=== PATIENT | female | born 2000 | race Two or more races ===

== ENCOUNTER 2021-03-14 20:15 | Inpatient (IN) | payer OTHER ==
[~2021-03-14] VITALS: Ht 144.8 cm; Wt 40.4 kg
--- NOTE | 2021-03-14 20:25 | NUR ---
PATIENT WAS BIB [facility] FROM HOME WITH C/O MIDSTERNAL CHEST PAIN X1 DAY. PT IS AAO X 4, BREATHING EVEN AND UNLABORED, SATURATION >95 ON ROOM AIR. ON ASSESSMENT, PT STATES THE PAIN IS NON RADIATING. PT ATTACHED TO MONITOR AND PULSE OX. WILL CONT TO MONITOR PT.
--- NOTE | 2021-03-14 20:40 | NUR ---
EKG DONE AT BEDSIDE
--- NOTE | 2021-03-14 20:45 | NUR ---
IV LINE ESTABLISHED AT RAC 20G, BLOOD DRAWN, MRSA SWAB COLLECTED AND SENT TO LAB
[2021-03-14 20:49] LABS: BASOPHILS % (AUTO) 0.6 % (0.0-2.0); EOSINOPHILS % (AUTO) 2.1 % (0.0-6.0); HEMATOCRIT 57 % (33-45); HEMOGLOBIN 18.7 g/dL (11.5-14.8); LYMPHOCYTES # (AUTO) 2.3 K/uL (0.8-4.8); LYMPHOCYTES % (AUTO) 28.4 % (20.0-44.0); MEAN CORPUSCULAR HGB CONC 33 g/dl (31.0-36.0); MEAN CORPUSCULAR VOLUME 91 fL (82-100); MONOCYTES # (AUTO) 0.8 K/uL (0.1-1.30); MONOCYTES % (AUTO) 9.4 % (2.0-12.0); NEUTROPHILS # (AUTO) 4.8 K/uL (1.8-8.9); NEUTROPHILS % (AUTO) 59.5 % (43.0-81.0); PLATELET COUNT (AUTO) 192 K/uL (150-450); RED BLOOD CELL COUNT(AUTO) 6.19 MIL/uL (4.0-5.2); WHITE BLOOD COUNT (AUTO) 8.1 K/uL (4.3-11.0)
--- NOTE | 2021-03-14 20:50 | NUR ---
COVID ANTIGEN SWAB COLLECTED AND SENT TO LAB
[2021-03-14 21:07] LABS: CALCIUM, SERUM 8.2 mg/dL (8.5-10.1); CARBON DIOXIDE 23 mmol/L (21-32); CHLORIDE 106 mmol/L (98-107); CREATININE 0.8 mg/dL (0.6-1.3); GLUCOSE 80 mg/dL (74-106); SODIUM SERUM 137 mmol/L (136-145); UREA NITROGEN, BLOOD 23 mg/dL (7-18)
--- NOTE | 2021-03-14 21:10 | NUR ---
DR ARREOLA AT BEDSIDE
[2021-03-14] MEDS ORDERED: ASPIRIN 81 MG TAB.CHEW PO ONE (22:00)
[2021-03-14] MEDS ORDERED: ENOXAPARIN SODIUM 30 MG/0.3 ML DISP.SYRIN SQ SCH (22:30)
[2021-03-14] MEDS ORDERED: MAGNESIUM HYDROXIDE 30 ML UDC PO PRN (22:30)
[2021-03-14] MEDS ORDERED: MAG HYDROX/AL HYDROX/SIMETH 30 ML UDC PO PRN (22:30)
[2021-03-14] MEDS ORDERED: HYDROCODONE/APAP 5/325MG TABLET PO PRN (22:30)
[2021-03-14] MEDS ORDERED: ONDANSETRON HCL/PF 4 MG/2 ML VIAL IVP PRN (22:30)
[2021-03-14] MEDS ORDERED: MORPHINE SULFATE INJ 2 MG/ML DISP.SYRIN IV PRN (22:30)
[2021-03-14] MEDS ORDERED: NITROGLYCERIN 0.4 MG/TAB BOTTLE SL ONE (22:30)
[2021-03-14] MEDS ORDERED: ACETAMINOPHEN 325 MG TABLET PO PRN (22:30)
[2021-03-14 22:59] LABS: EOSINOPHILS % (MANUAL) 3 % (0-4); LYMPHOCYTES % (MANUAL) 22 % (16-48); MONOCYTES % (MANUAL) 11 % (0-11.0); NEUTROPHILS % (MANUAL) 60 (42-76); REACTIVE LYMPHOCYTES 4 % (0-0)
--- NOTE | 2021-03-14 23:14 | NUR ---
TELE 320-2
--- NOTE | 2021-03-14 23:30 | NUR ---
REPORT GIVEN TO TOÑO PEREZ FOR JOVANNI
--- NOTE | 2021-03-14 23:40 | NUR ---
PT TRANSFERRED TO TELE 3RD FLOOR RM 320-2 VIA ACLS PROTOCOL
[2021-03-14 23:45] VITALS: BP 102/53
[2021-03-15] VITALS: BP 121/72
--- NOTE | 2021-03-15 00:44 | NUR ---
ADMISSION NOTES RECEIVED PT VIA MITZY @8019. PT IS AOx4. ABLE TO MAKE NEEDS KNOWN. ON OXYGEN VIA NASAL CANNULA AT 5L/MIN AND TOLERATING WELL. NO SOB NOTED. NO S/SX OF RESPIRATORY DISTRESS NOTED. IV ACCESS IN R AC #20G. IV IS INTACT, PATENT, AND FLUSHING WELL. TELE MONITOR DETECTS SINUS BRADYCARDIA WITH RATE OF 58. SAFETY PRECAUTIONS IN PLACE: BED IN LOWEST, LOCKED POSITION, BRAKES ON, SIDERAILS UPx2. TABLE AND CALL LIGHT WITHIN REACH. WILL CONTINUE TO MONITOR.
[2021-03-15 04:00] VITALS: BP 109/49
[2021-03-15 06:17] LABS: BASOPHILS % (AUTO) 0.4 % (0.0-2.0); EOSINOPHILS % (AUTO) 1.4 % (0.0-6.0); HEMATOCRIT 52 % (33-45); HEMOGLOBIN 17.3 g/dL (11.5-14.8); LYMPHOCYTES # (AUTO) 1.9 K/uL (0.8-4.8); LYMPHOCYTES % (AUTO) 21.8 % (20.0-44.0); MEAN CORPUSCULAR HGB CONC 33 g/dl (31.0-36.0); MEAN CORPUSCULAR VOLUME 92 fL (82-100); MONOCYTES # (AUTO) 0.8 K/uL (0.1-1.30); MONOCYTES % (AUTO) 9.5 % (2.0-12.0); NEUTROPHILS # (AUTO) 5.8 K/uL (1.8-8.9); NEUTROPHILS % (AUTO) 66.9 % (43.0-81.0); PLATELET COUNT (AUTO) 197 K/uL (150-450); RED BLOOD CELL COUNT(AUTO) 5.71 MIL/uL (4.0-5.2); WHITE BLOOD COUNT (AUTO) 8.7 K/uL (4.3-11.0)
--- NOTE | 2021-03-15 06:25 | NUR ---
WEATHERIZATION FIELD TECHNICIAN CLOSING NOTES PT IN BED, SLEEPING, AWAKENS TO VERBAL STIMULI. PT IS AOx4. ABLE TO MAKE NEEDS KNOWN. ON OXYGEN VIA NASAL CANNULA AT 5L/MIN AND TOLERATING WELL. NO SOB NOTED. NO S/SX OF RESPIRATORY DISTRESS NOTED. IV ACCESS IN R AC #20G. IV IS INTACT, PATENT, AND FLUSHING WELL. TELE MONITOR DETECTS SINUS BRADYCARDIA WITH RATE OF 58. ALL NEEDS MET. PT KEPT CLEAN AND DRY. SAFETY PRECAUTIONS IN PLACE: BED IN LOWEST, LOCKED POSITION, BRAKES ON, SIDERAILS UPx2. TABLE AND CALL LIGHT WITHIN REACH. WILL ENDORSE TO ONCOMING SHIFT.
[2021-03-15 07:26] LABS: CHOLESTEROL 157 mg/dL (<200); HDL CHOLESTEROL 55 mg/dL (40-60); LDL 93 mg/dL (0-99); THYROID STIMULATING HORMONE 2.408 uIU/mL (0.358-3.74); TRIGLYCERIDES 72 mg/dL (30-150)
[2021-03-15 07:27] LABS: CALCIUM, SERUM 8.5 mg/dL (8.5-10.1); CARBON DIOXIDE 19 mmol/L (21-32); CHLORIDE 107 mmol/L (98-107); CREATININE 0.5 mg/dL (0.6-1.3); GLUCOSE 62 mg/dL (74-106); MAGNESIUM 2.2 mg/dL (1.8-2.4); PHOSPHORUS 5.1 mg/dL (2.5-4.9); POTASSIUM 3.6 mmol/L (3.5-5.1); SODIUM SERUM 137 mmol/L (136-145); UREA NITROGEN, BLOOD 17 mg/dL (7-18)
[2021-03-15] MEDS: PANTOPRAZOLE 40 MG TABLET.DR PO SCH (07:42)
--- NOTE | 2021-03-15 07:45 | NUR ---
MS/RN OPENING NOTES RECEIVED PATIENT ON BED AWAKE ALERT AND ORIENTED X4. PATIENT IS ON 5L OXYGEN VIA NASAL CANNULA SATURATION 87%. PATIENT IN NO APPARENT RESPIRATORY DISTRESS NOTED. NO COMPLAINED OF PAIN NOTED. WILL CONTINUE TO MONITOR.
[2021-03-15 08:00] VITALS: BP 104/41
[2021-03-15] MEDS: ASPIRIN 81 MG TAB.CHEW PO SCH (08:32)
[2021-03-15] MEDS: ENOXAPARIN SODIUM 30 MG/0.3 ML DISP.SYRIN SQ SCH (08:40)
[2021-03-15] MEDS ORDERED: FERR325T24 PO (09:05)
[2021-03-15] MEDS ORDERED: ASPI-1169 PO (09:05)
[2021-03-15 12:00] VITALS: BP 103/50
[2021-03-15] MEDS: ENSURE ENLIVE 237 ML LIQUID (VANILLA) PO SCH (14:00)
[2021-03-15 16:00] VITALS: BP 108/54
--- NOTE | 2021-03-15 19:00 | NUR ---
TELEPHONE SWITCHBOARD OPERATOR OPENING NOTE RECEIVED PT IN BED, RESTING A/O X4, PT STABLE ON 5L OXYGEN VIA NC. NO S/S OF RESPIRATORY DISTRESS. PT IS ON EXTERNAL DAIRY POWDER MIXER OPERATOR READING SR @ 70 WITH BBB. NO C/O PAIN AT THIS TIME. IV ACCESS IN RIGHT AC # 20. IV IS INTACT, PATENT, AND FLUSHING WELL. FAMILY AT BEDSIDE. SAFETY MEASURES MAINTAINED AT ALL TIMES. BED IN LOWEST LOCKED POSITION, HOB ELEVATED, SIDE RAILS UP X2. CALL LIGHT AND TABLE WITHIN REACH. WILL CONTINUE WITH PLAN OF CARE.
--- NOTE | 2021-03-15 19:24 | NUR ---
TELE/RN CLOSING NOTES PATIENT IS ON BED ALERT AND ORIENTED X4. PATIENT IS ON 5L OXYGEN VIA NASAL CANNULA SATURATION 88%. PATIENT IN NO APPARENT RESPIRATORY DISTRESS NOTED. NO COMPLAINED OF PAIN NOTED AT THIS TIME. TELE MONITOR READING SINUS RHYTHM 76 BPM. IV ACCESS AT RIGHT AC # 20G PATENT AND INTACT. SEEN AND EXAMINED BY MD WITH ORDERS MADE AND CARRIED OUT. ALL DUE MEDICATIONS WAS GIVEN. SAFETY PRECAUTIONS WAS IN PLACED. BED IN LOWEST POSITION AND LOCKED. SIDE RAILS UP X2. CALL LIGHT WITHIN REACH. WILL ENDORSE TO FRONT OFFICE AGENT RN FOR CONTINUITY OF CARE.
[2021-03-15 20:00] VITALS: BP 100/59
[2021-03-16] VITALS: BP_SYST 103; BP_SYST 99; BP_DIAS 45; BP_DIAS 55
[2021-03-16 04:00] VITALS: BP 98/55
--- NOTE | 2021-03-16 06:29 | NUR ---
TECHNICAL PROGRAMS MANAGER CLOSING NOTE PT RESTING IN BED COMFORTABLY AT THIS TIME, EASY TO AROUSE, STABLE ON 5L OXYGEN VIA NC, SR @ 47 WITH BBB. PT REMAINED STABLE THROUGHOUT SHIFT. ALL NEEDS, MEDICATIONS, AND CARE ADMINISTERED ANTICIPATED PER ORDER; SAFETY PRECAUTIONS IN PLACE AND MAINTAINED AT ALL TIMES. BED IN LOWEST, LOCKED POSITION, HOB ELEVATED, SIDE RAILS UP X2. CALL LIGHT AN DTABLE WITHIN REACH. WILL ENDORSE TO AM SHIFT NURSE FOR JOVANNI.
[2021-03-16 08:16] VITALS: BP 104/42
[2021-03-16] MEDS: PANTOPRAZOLE 40 MG TABLET.DR PO SCH (08:16)
[2021-03-16] MEDS: ASPIRIN 81 MG TAB.CHEW PO SCH (08:16)
[2021-03-16] MEDS: ENOXAPARIN SODIUM 30 MG/0.3 ML DISP.SYRIN SQ SCH (08:16)
[2021-03-16] MEDS: ENSURE ENLIVE 237 ML LIQUID (VANILLA) PO SCH (08:17)
--- NOTE | 2021-03-16 08:38 | NUR ---
GUNNER MATE OPENING NOTES RECEIVED PATIENT IN BED, AWAKE, A/OX4. PATIENT ON ROOM AIR; BREATHING EVEN AND UNLABORED AT THIS TIME; NO SOB NOTED. NO COMPLAINS OF PAIN. TELE MONITOR WITH A CURRENT READING OF SR 61. NO IV LINE, PER MD OK NOT TO HAVE ONE. SAFETY PRECAUTIONS IN PLACE; BED IN LOW POSITION AND LOCKED, RAILS UP X2, CALL LIGHT WITHIN REACH. WILL CONTINUE TO MONITOR PATIENT.
--- NOTE | 2021-03-16 13:40 | NUR ---
EXTRACTION SUPERVISOR NOTES PATIENT SATURATING 81% ON ROOM AIR W/O O2 ON PATIENT IS COMFORTABLE ON 5 LPM SATURATING 96-97%
[2021-03-16 16:28] VITALS: BP 97/47
--- NOTE | 2021-03-16 18:31 | NUR ---
MEDIA DIRECTOR CLOSING NOTES PATIENT REMAINS IN BED, AWAKE, A/OX4. PATIENT ON ROOM AIR; BREATHING EVEN AND UNLABORED AT THIS TIME; NO SOB NOTED. NO COMPLAINS OF PAIN DURING THE SHIFT. NO IV LINE, PER MD OK NOT TO HAVE ONE. ALL NEEDS ATTENDED DURING THE DAY. PATIENT AWAITING DELIVERY OF O2 AND ABOUT TO GO HOME WITH FAMILY. ALL DISCHARGE PAPERWORK READY AND SIGNED BY PATIENT. SAFETY PRECAUTIONS IN PLACE; BED IN LOW POSITION AND LOCKED, RAILS UP X2, CALL LIGHT WITHIN REACH. WILL ENDORSE TO BRAND AMBASSADOR PROMOTIONAL MODEL NURSE.
--- NOTE | 2021-03-16 19:47 | NUR ---
OXYGEN TANK AND THE REGULATOR MACHINE ALREADY DELIVERED, PATIENT IS AWARE. IV ALREADY REMOVED BY CHRIS ROBERT. D/C INSTRUCTIONS GIVEN BY CHRIS ROBERT, PACKET GIVEN TO THE PATIENT.
--- NOTE | 2021-03-16 20:41 | NUR ---
PATIENT BEING PICKED UP BY RELATIVES WITH O2 AT 5L/MIN NASAL CANNULA, ON O2 TANK. PATIENT IS CALM. NO S/S OF DISTRESS NOTED.
== END 2021-03-16 20:30 | disposition home or self-care (01) | DRG 144 ==
LOC: ER 20:18 → TELE 23:18 → MED 03-16 09:27
PROVIDERS: ADMIT Nurse Practitioner Acute Care; ATTEND Nurse Practitioner Acute Care
DX: R09.02 Hypoxemia (principal); R64 Cachexia; E44.0 Moderate protein-calorie malnutrition; I42.9 Cardiomyopathy, unspecified; Z68.1 Body mass index [BMI] 19.9 or less, adult; R79.89 Other specified abnormal findings of blood chemistry; Q21.0 Ventricular septal defect; Z98.61 Coronary angioplasty status; Z98.890 Other specified postprocedural states; Z20.822 Contact with and (suspected) exposure to COVID-19
CPT/HCPCS: 36415; 71045-TC; 80048-TC; 80061-TC; 83735-TC; 83880; 84100-TC; 84443-TC; 84484-TC; 84703-TC; 85025-TC; 85378-TC; 87081-TC; 93307-TC; C9803; G0378; J1650

== ENCOUNTER 2023-10-22 14:34 | Emergency (ER) | payer OTHER ==
[~2023-10-22] VITALS: Ht 149.9 cm; Wt 38.6 kg
[~2023-10-22 14:34] MED LIST: ASPI-1169 PO; FERR325T24 PO
[2023-10-22 15:11] VITALS: BP 125/68; TEMP 98.1
[2023-10-22 15:24] VITALS: O2SAT 95
== END 2023-10-22 15:25 | disposition home or self-care (01) ==
LOC: ER 14:46
DX: H11.32 Conjunctival hemorrhage, left eye (principal); Z86.79 Personal history of other diseases of the circulatory system; Z87.09 Personal history of other diseases of the respiratory system

== ENCOUNTER 2024-02-05 01:21 | Inpatient (IN) | payer OTHER ==
[~2024-02-05] VITALS: Ht 149.9 cm; Wt 38.6 kg
--- NOTE | 2024-02-05 01:35 | NUR ---
[id number] from home for CP after getting in argument. noted with low O2 pt states is at "baseline" PATIENT CONNECTED TO MONITOR AND POX
[2024-02-05 01:50] LABS: BASOPHILS # (AUTO) 0.1 K/uL (0.0-0.2); BASOPHILS % (AUTO) 0.6 % (0.0-2.0); EOSINOPHILS # (AUTO) 0.1 K/uL (0.0-0.7); EOSINOPHILS % (AUTO) 0.7 % (0.0-6.0); HEMATOCRIT 55 % (33-45); HEMOGLOBIN 18.4 g/dL (11.5-14.8); LYMPHOCYTES # (AUTO) 1.9 K/uL (0.8-4.8); LYMPHOCYTES % (AUTO) 17.7 % (20.0-44.0); MEAN CORPUSCULAR HEMOGLOBIN 29 PG (26.0-33.0); MEAN CORPUSCULAR HGB CONC 34 g/dl (31.0-36.0); MEAN CORPUSCULAR VOLUME 86 fL (82-100); MONOCYTES # (AUTO) 0.9 K/uL (0.1-1.30); MONOCYTES % (AUTO) 8.5 % (2.0-12.0); NEUTROPHILS # (AUTO) 7.7 K/uL (1.8-8.9); NEUTROPHILS % (AUTO) 72.5 % (43.0-81.0); PLATELET COUNT (AUTO) 204 K/uL (150-450); RED BLOOD CELL COUNT(AUTO) 6.41 MIL/uL (4.0-5.2); RED CELL DISTRIBUTION WIDTH 15.3 % (11.5-15.0); WHITE BLOOD COUNT (AUTO) 10.7 K/uL (4.3-11.0)
[2024-02-05 02:20] LABS: ALANINE AMINOTRANSFERASE 18 U/L (12-78); ALKALINE PHOSPHATASE 97 U/L (46-116); ASPARTATE AMINOTRANSFERASE 21 U/L (15-37); BILIRUBIN,DIRECT 0.3 mg/dL (0.0-0.2); BILIRUBIN,TOTAL 1.5 mg/dL (0.2-1.0); CALCIUM, SERUM 9.4 mg/dL (8.5-10.1); CARBON DIOXIDE 21 mmol/L (21-32); CHLORIDE 104 mmol/L (98-107); CREATININE 0.5 mg/dL (0.6-1.3); GLUCOSE 91 mg/dL (74-106); NT-PRO BNP 105 pg/mL (0-125); POTASSIUM 4.2 mmol/L (3.5-5.1); SODIUM SERUM 138 mmol/L (136-145); TOTAL PROTEIN, SERUM 7.8 g/dL (6.4-8.2); UREA NITROGEN, BLOOD 17 mg/dL (7-18)
[2024-02-05 02:44] VITALS: BP 121/69; TEMP 98.6; O2SAT 85
--- NOTE | 2024-02-05 02:44 | NUR ---
spoke to Prakash the complex case manager and got auth to keep the patient. Auth# [id number] called house sup for tele bed
[2024-02-05] MEDS ORDERED: ONDANSETRON HCL/PF 4 MG/2 ML VIAL IVP PRN (03:30)
[2024-02-05] MEDS ORDERED: ZOLPIDEM TARTRATE 5 MG TABLET PO PRN (03:30)
[2024-02-05] MEDS ORDERED: NITROGLYCERIN 0.4 MG/TAB BOTTLE SL PRN (03:30)
[2024-02-05] MEDS ORDERED: MAGNESIUM HYDROXIDE 30 ML UDC PO PRN (03:30)
[2024-02-05] MEDS ORDERED: ACETAMINOPHEN 325 MG TABLET PO PRN (03:30)
[2024-02-05] MEDS ORDERED: Z GUARD REMEDY 4 OZ OINT TP PRN (03:30)
[2024-02-05] MEDS ORDERED: MAG HYDROX/AL HYDROX/SIMETH 30 ML UDC PO PRN (03:30)
--- NOTE | 2024-02-05 04:02 | NUR ---
Patient does not wish to proceed with medical care recommended by Dr. Billingsley. Patient given information related to possible complications, up to and including , which could occur as a result of leaving the hospital at this time. Patient verbalizes understanding of risks involved due to leaving against medical advice. Patient has signed AMA form.
[2024-02-05] MEDS ORDERED: PANTOPRAZOLE 40 MG TABLET.DR PO SCH (07:30)
[2024-02-05] MEDS ORDERED: ASPIRIN 81 MG TAB.CHEW PO SCH (09:00)
== END 2024-02-05 04:06 | disposition left against medical advice (07) | DRG 203 ==
LOC: ER 01:29 → TELE 03:48
PROVIDERS: ADMIT Nurse Practitioner Family; ATTEND Nurse Practitioner Family
DX: R07.9 Chest pain, unspecified (principal); Z20.822 Contact with and (suspected) exposure to COVID-19; Z79.82 Long term (current) use of aspirin; Z87.74 Personal history of (corrected) congenital malformations of heart and circulatory system; Z98.890 Other specified postprocedural states
CPT/HCPCS: 36415; 71045-TC; 80048-TC; 80076-TC; 83880; 84484-TC; 84702-TC; 85025-TC; G0378

== ENCOUNTER 2024-07-17 17:08 | Emergency (ER) | payer OTHER ==
[~2024-07-17] VITALS: Ht 144.8 cm; Wt 36.3 kg
[2024-07-17 17:29] VITALS: BP 115/63; TEMP 98.2
[2024-07-17 17:55] VITALS: O2SAT 99
== END 2024-07-17 17:55 | disposition home or self-care (01) ==
LOC: ER 17:18
DX: M54.2 Cervicalgia (principal); R51.9 Headache, unspecified; Z79.82 Long term (current) use of aspirin; V89.2XXA Person injured in unspecified motor-vehicle accident, traffic, initial encounter; Y93.89 Activity, other specified; Y92.89 Other specified places as the place of occurrence of the external cause; Y99.8 Other external cause status